=== PATIENT | male | born 1980 | race Caucasian/White ===

== ENCOUNTER → 2024-08-30 06:31 | Outpatient (CLI) | payer OTHER, SELFPAY ==
--- NOTE | 2024-08-30 06:39 | DI.ECHO.S_ITS ---
[facility] +---------+ [facility] : : [address] : : [place] : : [id number] : : Phone: [phone] Echocardiogram Report + + :Name: Kimberly TRACY Date: 08/30/2024 Height: 65 in : :Hospital ReadingLocation: Weight: 167 lb : : Gender: Male BSA: 1.8 m2 : :: 1980 Age: 44 yrs BP: 136/98 mmHg: :Reason For Study: Ischemic heart disease : :Ordering Physician: CORY, : :BISHOP Performed By: Marcela Jones : :Referring: BISHOP RAY : + + Interpretation Summary Normal both left and right ventricle size and function. Left ventricular ejection fraction is estimated to be 55%. No valvular abnormality. Procedure: A two-dimensional transthoracic echocardiogram with color flow and Doppler was performed. The study quality was technically good. There is no prior echocardiogram noted for this patient. The heart rate ranged between 68- 70 bpm during the study. Left Ventricle: The left ventricle is normal in size and wall thickness. Left ventricular ejection fraction is estimated to be 55%. There are no focal wall motion abnormalities. Diastolic parameters suggest probable normal left ventricular diastolic function and normal filling pressures. Right Ventricle: The right ventricle grossly appears normal in size with probable normal systolic function. Atria: The left atrial size is normal. Right atrial size is normal. The interatrial septum grossly appears intact with no obvious evidence for an atrial septal defect. Mitral Valve: The mitral valve is grossly normal. There is trace mitral regurgitation. Aortic Valve: The aortic valve is trileaflet. The aortic valve opens well. No aortic regurgitation is present. Tricuspid Valve: The tricuspid valve leaflets are thin and pliable. No tricuspid regurgitation. Pulmonic Valve: The pulmonic valve is normal in structure and function. There is no pulmonic valvular regurgitation. Great Vessels: The aortic root is normal size. The ascending aorta is normal in size. The aortic arch is normal in size. The IVC is of normal diameter and collapses greater than 50% with a sniff. This suggests a low right atrial pressure of 3 mm Hg. Pericardium/ Pleura There is no pericardial effusion. There is no pleural effusion. MMode/2D Measurements & Calculations LVIDd: 4.7 cm LVOT diam: 2.1 cm LVIDs: 2.9 cm Ao root diam: 3.1 cm FS: 36.7 % asc Aorta Diam: 3.2 cm EPSS: 0.39 cm Ao Arch Diam (Prox Trans): 2.5 cm IVSd: 0.73 cm LVPWd: 0.75 cm LV chawla. diameter/BSA (cm/m^2): 2.5 LV sys. diameter/BSA (cm/m^2): 1.6 LA A2 area: 15.2 cm2 RA long axis: 4.5 cm LA A4 area: 17.0 cm2 RA area: 14.5 cm2 LA length (vol): 5.2 cm RA vol: 39.4 ml LA vol: 42.2 ml RA : 21.5 ml/m2 LA vol index: 23.0 ml/m2 IVC diam: 1.5 cm RVD1 (basal): 3.4 cm TAPSE: 2.0 cm Doppler Measurements & Calculations Ao V2 max: 117.6 cm/sec LVOT Max Jerzy: 88.1 cm/sec Ao V2 mean: 86.7 cm/sec LV V1 max P.1 mmHg Ao max P.5 mmHg LV V1 VTI: 18.7 cm Ao mean P.3 mmHg EFRA(I,D): 2.3 cm2 Ao V2 VTI: 27.5 cm EFRA(V,D): 2.5 cm2 sev ratio: 0.68 EFRA indexed to BSA (cm^2/m^2): 1.2 MV E max jerzy: 64.5 cm/sec PA V2 max: 84.2 cm/sec MV A max jerzy: 57.5 cm/sec PA V2 mean: 53.2 cm/sec MV E/A: 1.1 PA mean P.4 mmHg Med Peak E' Jerzy: 8.8 cm/sec PA pr(Accel): -8.3 mmHg E/E' med: 7.3 Lat Peak E' Jerzy: 16.7 cm/sec E/E' lat: 3.9 E/e' average: 5.6 MV dec time: 0.22 sec SV(LVOT): 62.0 ml Electronically signed by: Lilibeth Mullen on Reading Physician:08/30/2024 10:10 AM
== END ==
PROVIDERS: PCP Student in an Organized Health Care Education/Training Program; Referring Provider Chiropractor; Visit Provider Chiropractor
DX: I25.9 Chronic ischemic heart disease, unspecified (principal)
CPT/HCPCS: 93306